=== PATIENT | female | born 1955 | race African-American/Black ===

== ENCOUNTER 2018-09-07 08:36 | Inpatient (IN) ==
[2018-09-07] MEDS ORDERED: ONDANSETRON 4 MG/2 ML VIAL IV STA (09:40)
[2018-09-07] MEDS ORDERED: PANTOPRAZOLE 40 MG VIAL IV STA (09:40)
[2018-09-07] MEDS ORDERED: SODIUM CHLORIDE 0.9% 1,000 ML IV STA (09:40)
[2018-09-07 09:47] LABS: Basophils % 0.2 % (0.0-0.8); Eosinophils % 0.1 % (0.00-10.9); Neutrophils % 90.9 % (38.7-73.9); Red Cell Distribution Width 14.3 % (9.3-17.3)
[2018-09-07 09:53] LABS: Hematocrit 52.7 VOL% (35.7-47.0); Hemoglobin 16.5 GM/DL (12.0-16.0); Immature Granulocytes % 0.7 %; Immature Granulocytes Absolute 0.11 #; Lymphocytes # 0.6 10*3/uL (1.4-4.0); Lymphocytes % 3.9 % (21.3-54.2); Mean Corpuscular HGB Conc 31.3 GM/DL (32-36); Mean Platelet Volume 9.7 FL (9.6-12.0); Monocytes % 4.2 % (1.7-12.7); Platelet Count 690 T/CUMM (130-400); Red Blood Count 5.02 MC/CUMM (3.8-5.5); White Blood Count 16.3 T/CUMM (4-12)
[2018-09-07 09:58] LABS: Bilirubin,Total 0.8 MG/DL (0.2-1.0); Calcium 10.2 MG/DL (8.5-10.1); Osmolality,Calculated 274.7 MOS/KG (273-304); Total Protein 10.1 G/DL (6.4-8.3)
[2018-09-07 10:10] LABS: Apearance,Urine Slightly Hazy (Clear); Bacteria,Urine Occasional /HPF (Few); Bilirubin,Urine Negative (Negative); Blood, Urine Moderate mg/dL (Negative); Glucose,Urine (UA) 50 mg/dL (Negative); Hyaline Casts,Urine 82 /LPF (0-3); Ketones,Urine 80 mg/dL (Negative); Mucus,Urine Occasional /LPF (Occasional); Nitrite,Urine Negative (Negative); Protein,Urine 100 MG/DL; RBC,Urine 9 /HPF (0-4); Squamous Epithelial Cell,Urine Occasional /HPF (0-10); Urine Color Yellow (Yellow); Urine Specific Gravity 1.016 (1.001-1.035); Urine Urobilinogen < 2.0 EU/DL (0.2-1.0); WBC,Urine 8 /HPF (0-6)
[2018-09-07 10:15] LABS: Band Neutrophils 1 % (0-10); Lymphocytes 6 % (20-55); Platelet Estimate Increased; Segmented Neutrophils 83 % (50-85); Total Cells Counted 100
[2018-09-07] MEDS ORDERED: SODIUM CHLORIDE 0.9% 500 ML IV ONE (13:50)
[2018-09-07] MEDS ORDERED: ONDANSETRON 4 MG/2 ML VIAL IV PRN (14:19)
[2018-09-07] MEDS ORDERED: ENOXAPARIN 30 MG/0.3 ML SYRINGE SUBCUT SCH (14:30)
[2018-09-07] MEDS: SODIUM CHLORIDE 0.9% 1,000 ML IV SCH (14:36)
[2018-09-07] MEDS: MORPHINE 4 MG/1 ML VIAL IV PRN (15:28)
[2018-09-07] MEDS ORDERED: AZTREONAM 2,000 MG in SYRINGE 1 EACH IV ONE (16:00)
[2018-09-07] MEDS ORDERED: VANCOMYCIN INJ 750 MG in SODIUM CHLORIDE 0.9% 250 ML IV SCH (17:00)
[2018-09-07] MEDS: AZTREONAM 1,000 MG in SYRINGE 1 EACH IV SCH (21:26)
[2018-09-08] MEDS: SODIUM CHLORIDE 0.9% 1,000 ML IV SCH ×3 (00:29→17:00)
[2018-09-08] MEDS: AZTREONAM 1,000 MG in SYRINGE 1 EACH IV SCH ×2 (03:32→09:39)
[2018-09-08 06:17] LABS: Bilirubin,Total 0.8 MG/DL (0.2-1.0); Calcium 8.7 MG/DL (8.5-10.1); Osmolality,Calculated 280.7 MOS/KG (273-304); Thyroid Stimulating Hormone 1.64 uIU/ml (0.358-3.74); Total Protein 6.7 G/DL (6.4-8.3)
[2018-09-08 06:37] LABS: Basophils % 0.4 % (0.0-0.8); Hematocrit 35.7 VOL% (35.7-47.0); Immature Granulocytes % 0.7 %; Immature Granulocytes Absolute 0.05 #; Lymphocytes # 1.3 10*3/uL (1.4-4.0); Lymphocytes % 18.8 % (21.3-54.2); Mean Corpuscular HGB Conc 32.2 GM/DL (32-36); Mean Corpuscular Volume 101.4 FL (87-102); Mean Platelet Volume 8.9 FL (9.6-12.0); Monocytes % 11.5 % (1.7-12.7); Neutrophils % 68.6 % (38.7-73.9); Red Cell Distribution Width 14.2 % (9.3-17.3)
[2018-09-08 06:40] LABS: Hemoglobin 11.5 GM/DL (12.0-16.0); Platelet Count 428 T/CUMM (130-400); Red Blood Count 3.52 MC/CUMM (3.8-5.5); White Blood Count 6.9 T/CUMM (4-12)
[2018-09-08] MEDS ORDERED: PANTOPRAZOLE 40 MG TABLET PO SCH (09:00)
[2018-09-08] MEDS: AZTREONAM 1,000 MG in SODIUM CHLORIDE 0.9% 100 ML IV SCH ×2 (17:00→21:03)
[2018-09-08] MEDS: PANTOPRAZOLE 40 MG TABLET PO SCH (21:03)
[2018-09-08] MEDS: MORPHINE 4 MG/1 ML VIAL IV PRN (21:13)
[2018-09-09] MEDS: SODIUM CHLORIDE 0.9% 1,000 ML IV SCH ×3 (03:01→18:07)
[2018-09-09] MEDS: AZTREONAM 1,000 MG in SODIUM CHLORIDE 0.9% 100 ML IV SCH ×2 (03:05→09:11)
[2018-09-09 04:48] LABS: Basophils % 0.8 % (0.0-0.8); Eosinophils % 0.6 % (0.00-10.9); Hematocrit 29.4 VOL% (35.7-47.0); Hemoglobin 9.5 GM/DL (12.0-16.0); Immature Granulocytes % 0.4 %; Immature Granulocytes Absolute 0.02 #; Lymphocytes # 2.2 10*3/uL (1.4-4.0); Lymphocytes % 45.9 % (21.3-54.2); Mean Corpuscular HGB Conc 32.3 GM/DL (32-36); Mean Corpuscular Volume 100.3 FL (87-102); Mean Platelet Volume 9.6 FL (9.6-12.0); Monocytes % 11.5 % (1.7-12.7); Neutrophils % 40.8 % (38.7-73.9); Platelet Count 323 T/CUMM (130-400); Red Blood Count 2.93 MC/CUMM (3.8-5.5); Red Cell Distribution Width 13.7 % (9.3-17.3); White Blood Count 4.7 T/CUMM (4-12)
[2018-09-09 04:59] LABS: Albumin 2.7 G/DL (3.4-5.0); Bilirubin,Total 0.6 MG/DL (0.2-1.0); Osmolality,Calculated 278.3 MOS/KG (273-304); Total Protein 5.6 G/DL (6.4-8.3)
[2018-09-09] MEDS: POTASSIUM CHLORIDE RIDER 10 MEQ in PREMIX 1 EACH IV PRN ×2 (05:55→07:08)
[2018-09-09] MEDS: PANTOPRAZOLE 40 MG TABLET PO SCH ×2 (09:07→22:26)
[2018-09-09] MEDS ORDERED: LIDOCAINE 2% 5 ML VIAL ONE (10:00)
[2018-09-09] MEDS ORDERED: PROPOFOL 200 MG/20 ML VIAL IV ONE (10:00)
[2018-09-09] MEDS ORDERED: LACTATED RINGERS 1,000 ML IV SCH (11:12)
[2018-09-10] MEDS: SODIUM CHLORIDE 0.9% 1,000 ML IV SCH ×4 (01:51→11:30)
[2018-09-10 05:14] LABS: Basophils % 0.4 % (0.0-0.8); Eosinophils % 0.6 % (0.00-10.9); Hematocrit 29.3 VOL% (35.7-47.0); Hemoglobin 9.6 GM/DL (12.0-16.0); Immature Granulocytes % 0.2 %; Immature Granulocytes Absolute 0.01 #; Lymphocytes # 1.8 10*3/uL (1.4-4.0); Lymphocytes % 38.5 % (21.3-54.2); Mean Corpuscular HGB Conc 32.8 GM/DL (32-36); Mean Corpuscular Volume 99.3 FL (87-102); Mean Platelet Volume 9.6 FL (9.6-12.0); Neutrophils % 49.3 % (38.7-73.9); Platelet Count 361 T/CUMM (130-400); Red Blood Count 2.95 MC/CUMM (3.8-5.5); Red Cell Distribution Width 13.4 % (9.3-17.3); White Blood Count 4.7 T/CUMM (4-12)
[2018-09-10 05:44] LABS: Calcium 8.1 MG/DL (8.5-10.1); Osmolality,Calculated 279.1 MOS/KG (273-304)
[2018-09-10] MEDS: PANTOPRAZOLE 40 MG TABLET PO SCH (08:51)
[2018-09-10] MEDS ORDERED: SODIUM CHLOR 0.9% KCL 40 MEQ 40 MEQ/1,000 ML BAG IV SCH (12:30)
[2018-09-10] MEDS: POTASSIUM CHLORIDE RIDER 10 MEQ in PREMIX 1 EACH IV PRN (13:56)
[2018-09-10 17:10] VITALS: BP 119/72
== END 2018-09-10 17:17 | disposition home or self-care (01) | DRG 241 ==
LOC: N.ED 08:36 → N.EDINP 08:36 → N.5E 15:03
PROVIDERS: ADMIT Internal Medicine; ATTEND Internal Medicine